=== PATIENT | male | born 1985 | race Hispanic/Latino ===

== ENCOUNTER 2023-04-16 20:51 | Inpatient (IN) | payer OTHER, SELFPAY ==
[~2023-04-16 20:51] MED LIST: Iopamidol-370 76% 500 ML MDV (1 ML CHARGE) ONE
[2023-04-16] MEDS ORDERED: Morphine 4 MG/ML VIAL ONE ×2 (21:19→22:17)
[2023-04-16 21:29] LABS: #Basophils 0.1 thou/uL (0.0-0.2); #Eosinphils 0.2 thou/uL (0.0-0.7); #Monocytes 0.9 thou/uL (0.11-0.59); #Neutrophils 5.7 thou/uL (1.40-6.50); %Basophils 0.5 % (0.0-1.0); %Eosinophils 1.8 % (0.0-10.0); %Lymphocytes 38.1 % (21.0-51.0); %Neutrophils 50.5 % (42.0-75.0); Hematocrit 39.6 % (42.0-52.0); Hemoglobin 13.3 g/dL (14.0-18.0); Mean Corpuscular HGB CONC 33.6 g/dL (32.0-36.0); Mean Corpuscular Hemoglobin 31.1 pg (27.0-31.0); Mean Corpuscular Volume 92.5 fl (78.0-98.0); Mean Platelet Volume 9.2 fL (7.4-10.4); Platelet Count 258 10x3/uL (130-400); Red Blood Cell (RBC) Count 4.28 mill/uL (4.70-6.10); White Blood Cell (WBC) Count 11.2 10x3/uL (4.8-10.8)
[2023-04-16 21:42] LABS: PTT 24.3 sec (22.9-36.1); Prothrombin Time 13.1 sec (12.0-14.7)
[2023-04-16 22:05] LABS: ALT (SGPT) 30 U/L (8-55); AST (SGOT) 74 U/L (5-34); Albumin 4.3 g/dL (3.5-5.0); Alkaline Phosphatase 83 U/L (40-110); Anion Gap 18 mmol/L (10-20); BUN (Urea Nitrogen) 11 mg/dL (8.9-20.6); Bilirubin, Total 0.3 mg/dL (0.2-1.2); Calc. Creatinine Clearance 0 mL/min (70-130); Calcium 8.9 mg/dL (7.8-10.44); Carbon Dioxide 19 mmol/L (22-29); Chloride 105 mmol/L (98-107); Estimated GFR 110; Globulin 2.7 g/dL (2.4-3.5); Glucose 103 mg/dL (70-105); Lipase 51 U/L (8-78); Potassium 3.5 mmol/L (3.5-5.1); Sodium 138 mmol/L (136-145)
[2023-04-16] MEDS ORDERED: Boostrix 0.5 ML (Tdap) VIAL (>/=7 yrs of age) ONE (22:05)
[2023-04-16] MEDS ORDERED: Ondansetron PF 4 MG/2 ML Vial IVP PRN (22:11)
[2023-04-16] MEDS ORDERED: Morphine 2 MG/ML VIAL SLOW IVP PRN (22:11)
[2023-04-16] MEDS ORDERED: Cyclobenzaprine 10 MG TAB PO PRN (22:14)
[2023-04-16] MEDS ORDERED: traMADol HCl 50 MG TAB PO PRN (22:14)
[2023-04-16 23:32] VITALS: BMI 23.3
[2023-04-16] MEDS: Sodium Chloride 0.9% 1,000 ML IV SCH (23:49)
[2023-04-16] MEDS: traMADol HCl 50 MG TAB PO SCH (23:49)
[2023-04-16] MEDS: Acetaminophen 500 MG TAB PO SCH (23:50)
[2023-04-17] MEDS: Acetaminophen 500 MG TAB PO SCH ×3 (05:21→16:59)
[2023-04-17] MEDS: Sodium Chloride 0.9% 1,000 ML IV SCH ×3 (05:22→14:39)
[2023-04-17] MEDS: traMADol HCl 50 MG TAB PO SCH ×3 (05:22→17:00)
[2023-04-17] MEDS ORDERED: Cyclobenzaprine 10 MG TAB PO PRN (06:53)
[2023-04-17] MEDS ORDERED: Polyethylene Glycol 3350 17 GM Packet PO SCH (09:00)
[2023-04-17] MEDS ORDERED: Famotidine/PF 20 mg/2ml Vial SLOW IVP SCH (09:00)
[2023-04-17] MEDS ORDERED: Senokot S 8.6-50 MG TAB PO SCH (09:00)
[2023-04-17] MEDS: Gabapentin 300 MG CAP PO SCH ×2 (10:01→16:59)
[2023-04-17 16:43] VITALS: BP 117/73; TEMP 99.2
[2023-04-20] MEDS ORDERED: FLU VACC QS2023-24(6MOS UP)/PF 60 MCG/0.5 ML SYRINGE IM ONE (09:00)
== END 2023-04-17 17:46 | disposition home or self-care (01) | DRG 562 ==
LOC: ERS 20:51 → SJJU 22:15 → ERS 23:02
PROVIDERS: ADMIT Student in an Organized Health Care Education/Training Program; ATTEND Student in an Organized Health Care Education/Training Program
DX: S42.101A Fracture of unspecified part of scapula, right shoulder, initial encounter for closed fracture (principal); S72.111A Displaced fracture of greater trochanter of right femur, initial encounter for closed fracture; S43.101A Unspecified dislocation of right acromioclavicular joint, initial encounter; F17.210 Nicotine dependence, cigarettes, uncomplicated; V29.99XA Rider (driver) (passenger) of other motorcycle injured in unspecified traffic accident, initial encounter; Y92.89 Other specified places as the place of occurrence of the external cause; Z98.890 Other specified postprocedural states
CPT/HCPCS: 36415; 70450; 71260; 72125; 74177; 80053; 83690; 85025; 85610; 85730; 90471; 90715; 93005; 96374; 96376; G0390; J2270; J2405; J7050; Q9967; S0028